=== PATIENT | female | born 1955 | race Caucasian/White ===

== ENCOUNTER → 2017-05-27 | Outpatient (CLI) | payer MEDICAID | LOC: FIMAGING 14:00 | PROVIDERS: ATTEND Family Medicine | DX: Z12.31 Encounter for screening mammogram for malignant neoplasm of breast (principal) | CPT/HCPCS: G0202 ==

== ENCOUNTER 2017-06-08 13:07 | Day surgery (SDC) | payer MEDICAID ==
[2017-06-08] MEDS ORDERED: LIDOCAINE 1% 2 ML INJ ONE (13:23)
[2017-06-08] MEDS ORDERED: LIDOCAINE 1% 2 ML INJ ID PRN (13:43)
[2017-06-08] MEDS ORDERED: LR 1,000 ML IV ONE (13:43)
--- NOTE | 2017-06-08 14:02 | PDANEPAE ---
ANE History of Present Illness colonoscope ANE Past Medical History - Cardiovascular History Hx Hypertension: No Hx Arrhythmias: No Hx Chest Pain: No Hx Coronary Artery / Peripheral Vascular Disease: No Hx CHF / Valvular Disease: No Hx Palpitations: No - Pulmonary History Hx COPD: No Hx Asthma/Reactive Airway Disease: No Hx Recent Upper Respiratory Infection: No Hx Oxygen in Use at Home: No Hx Sleep Apnea: No Sleep Apnea Screening Result - Last Documented: Positive - Endocrine History Hx Diabetes: No Hypothyroid: No Hyperthyroid: No ANE Review of Systems - Exercise capacity METS (RN): 4 METS ANE Patient History - Allergies Allergies/Adverse Reactions: codeine Allergy (Verified 07/21/16 10:43) latex Allergy (Verified 07/21/16 10:43) Sulfa (Sulfonamide Antibiotics) Allergy (Verified 07/21/16 10:43) sulfite Allergy (Verified 07/21/16 10:43) "all Pharmaceuticals" Allergy (Uncoded 07/21/16 10:43) - Home Medications Home Medications: NK [No Known Home Meds] 07/21/16 [Last Taken Unknown] - NPO status NPO Since - Liquids (Date): 06/08/17 NPO Since - Liquids (Time): 03:00 NPO Since - Solids (Date): 06/07/17 NPO Since - Solids (Time): 10:00 - Anes Hx Anes Hx: slow to awaken from anesthesia - Smoking Hx Smoking Status: Never smoked Marijuana use: No - Alcohol Use Alcohol Use: None ANE Labs/Vital Signs - Vital Signs Blood Pressure: 164/95 Heart Rate: 60 Respiratory Rate: 18 O2 Sat (%): 95 Height: 167.64 cm Weight: 121.212 kg ANE Physical Exam - Airway Neck exam: FROM Mallampati Score: Class 1 - Pulmonary Pulmonary: no respiratory distress - Cardiovascular Cardiovascular: regular rate and rhythym - ASA Status ASA Status: III ANE Anesthesia Plan Anesthesia Plan: GA with mask
[2017-06-08] MEDS ORDERED: PROPOFOL/EMULSION 500 MG/50 ML BOTTLE IV ONE (14:06)
--- NOTE | 2017-06-08 14:32 | PDGENHP ---
History & Physical Chief Complaint: Personal History of colo polyps History of Present Illness: Surveillance colonoscopy Pertinent Past, Social, Family History: Adenomatous colon polyps Relevant Physical Exam: NAD. CTA B/L. RRR without m/r/g. Abd: obese. Soft. NT /ND. NABS Cardiorespiratory Assessment: ASA II. Colonoscopy
[2017-06-08] MEDS ORDERED: LIDOCAINE 2% 5 ML SDV ONE (14:52)
[2017-06-08] MEDS ORDERED: ONDANSETRON 4 MG/2 ML VIAL IVP PRN (15:04)
[2017-06-08] MEDS ORDERED: NALOXONE HCL 0.4 MG/ML INJ IVP PRN (15:04)
--- NOTE | 2017-06-08 15:05 | POSTANESTH ---
Post Anesthetic Evaluation Cardiovascular Status: Normal, Stable Respiratory Status: Normal, Stable Level of Consciousness/Mental Status: Can Participate in Eval Pain Control: Adequate, Prn Tx Ordered Nausea/Vomiting Control: Adequate, Prn Tx Ordered Complications Possibly Related to Anesthesia: None Noted
[2017-06-08 15:20] VITALS: TEMP 97.5
--- NOTE | 2017-06-08 15:43 | GPN ---
[f rep st] PROCEDURE NOTE DATE OF PROCEDURE: 06/08/2017 PROCEDURE: Colonoscopy with biopsy. INDICATION: Surveillance of a personal history of adenomatous colon polyps. CONSENT: Procedure consent was obtained from the patient after the risks and benefits of colonoscop y and anesthesia were discussed in detail. All questions were answered and informed consent was obt ained. ANESTHESIOLOGIST: Dr. Chaidez. ENDOSCOPY STAFF: Krissy. COMPLICATIONS: None. ESTIMATED BLOOD LOSS: None. PROCEDURE MONITORING: Continuous per Anesthesiology protocol. ASA 3. DESCRIPTION OF PROCEDURE: The patient was placed into the left lateral decubitus position. Propofo l was administered. When she was appropriately sedated, a digital rectal exam was performed. The O lympus endoscope was ultimately placed into the anal canal and advanced into the cecum, which is vis ualized and identified by the appendiceal orifice and confluence of taenia coli, and the ileocecal v alve. All mucosal surfaces were examined in their entirety. A retroflexed view of the rectum was o btained. Quality of prep was excellent. FINDINGS: 1. A 3 mm cecal polyp, removed with cold biopsy. 2. Two ascending colon polyps between 3 and 4 mm in size, removed completely with cold biopsy. 3. One sigmoid colon polyp that was 4 mm in size, removed with cold biopsy. 4. Clark diverticulosis. 5. Normal digital rectal exam. IMPRESSION: 1. A 3 mm cecal polyp, removed by cold biopsy technique. 2. Two ascending colon polyps between 3 and 4 mm, removed completely with cold biopsy technique. 3. Clark diverticulosis. 4. A 4 mm sigmoid colon polyp removed with cold biopsy completely and retrieved. RECOMMENDATIONS: 1. Await pathology results. 2. Surveillance colonoscopy in 5 years. 3. Diet as tolerated. 4. The patient will be contacted with her pathology results as soon as they are available. /[id number]/MODL
[2017-06-08 15:56] VITALS: BP 139/89; PULSE 53; RESP 15; O2SAT 96
== END 2017-06-08 15:55 | disposition home or self-care (01) ==
LOC: FSGY 13:07
PROVIDERS: ATTEND Internal Medicine Gastroenterology
DX: Z12.11 Encounter for screening for malignant neoplasm of colon (principal); D12.0 Benign neoplasm of cecum; D12.2 Benign neoplasm of ascending colon; K63.5 Polyp of colon; K57.32 Diverticulitis of large intestine without perforation or abscess without bleeding; Z86.010 Personal history of colon polyps
CPT/HCPCS: J2704

== ENCOUNTER 2017-06-22 01:13 | Emergency (ER) | payer MEDICAID ==
--- NOTE | 2017-06-22 01:24 | EDPHY ---
H & P Time Seen by Provider: 06/22/17 01:23 HPI/ROS: CC: left eye redness and discomfort HPI: This 61-year-old female presents to emergency department tonight with left eye redness and discomfort that started at about 8:00 p.m. last evening. The discomfort feels like it is "bruised ". The discomfort increases with movement. She has not had changes in her vision. She denies recent illness. The light does not significantly bother her eye. 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 He denies a history of shingles or herpes virus and she does not wear contact lenses. She had a retinal detachment of the opposite eye in the past. REVIEW OF SYSTEMS: Constitutional: No fever, no chills. Eyes: No discharge. ENT: No sore throat. Respiratory: No cough, no shortness of breath. Cardiac: No chest pain, no palpitations. Gastrointestinal: No abdominal pain, no vomiting. Genitourinary: No hematuria. Musculoskeletal: No back pain. Skin: No rashes. Neurological: No headache. Past Medical/Surgical History: PMH: "atrial chaotica", retinal detachment, colon polyps (benign), dry eyes PSH: Hysterectomy without oophorectomy for fibroids, tonsillectomy FH: adopted Allergies reviewed Meds: Pataday eye drops, OTC Sooth eye lubricating drops Smoking Status: Never smoked Physical Exam: GEN: alert and oriented x 3, in mild distress Visual Acuity: noted from Nurse's notes. Pupils: equal round and reactive to light EOMI Lids: no edema or swelling Skin: no proptosis, no periorbital erythema or swelling, no vesicles Conjunctivae: Left eye erythematous/injected, no discharge Slit Lamp and Bullard lamp exam: Cornea: exam with fluorescein shows no evidence of corneal abrasion or foreign body. Lids were everted for exam Anterior chamber: normal, no hyphema or hypopyon; no cell or flare; IOP normal at 16mmHg by tonopen Cardiac: RRR, no M/G/R Pulmonary: CTAB Constitutional: Initial Vital Signs Temperature (C) 98.1 F 06/22/17 01:24 Heart Rate 58 L 06/22/17 01:24 Respiratory Rate 16 06/22/17 01:24 Blood Pressure 155/100 H 06/22/17 01:24 O2 Sat (%) 96 06/22/17 01:24 O2 Delivery Mode Room Air Allergies/Adverse Reactions: codeine Allergy (Verified 07/21/16 10:43) latex Allergy (Verified 07/21/16 10:43) Penicillins Allergy (Verified 06/22/17 01:21) Sulfa (Sulfonamide Antibiotics) Allergy (Verified 07/21/16 10:43) sulfite Allergy (Verified 07/21/16 10:43) "all Pharmaceuticals" Allergy (Uncoded 07/21/16 10:43) Home Medications: Medication Instructions Recorded Pat06/22/17 Medical Decision Making ED Course/Re-evaluation: The patient was seen and examined, vital signs were reviewed. The patient's initial blood pressure was elevated and he was advised to follow up this with her primary care provider. Exam of her left eye was done with the ophthalmoscope, Wood's lamp, slit lamp and Hipolito-Pen. There is no evidence of corneal abrasion, foreign body, acute angle closure glaucoma, iritis or retinal detachment. She was given ciprofloxacin ophthalmic solution and instructed to use 1-2 drops every 2 hours while awake for the next 1-2 days and then decrease the amount to 1 drop every 3-4 hours for a total of 7 days. She should follow up with her ethnoarchaeologist if no improvement or worsening symptoms in the next 1-2 days. Departure - Departure Disposition: Home, Routine, Self-Care Clinical Impression: Acute conjunctivitis of left eye Condition: Good Instructions: Ciprofloxacin (Into the eye), Conjunctivitis (ED) Additional Instructions: Use the eye drops as directed. Follow up with ophthalmology if no improvement or worsening symptoms. Your blood pressure was elevated today. You should have this rechecked with your primary care provider in the next couple of weeks. Referrals: Patient,NotPresent [Primary Care Provider] - As per Instructions Orlando Ortega MD [Medical Doctor] - 2-3 days, if not improved Bertin Dubois MD [Medical Doctor] - As per Instructions (Have your doctor recheck your blood pressure in the next couple of weeks.)
[2017-06-22 01:27] VITALS: RESP 16; TEMP 98.1; O2SAT 96
[2017-06-22] MEDS ORDERED: CIPROFLOXACIN 0.3% DROPS PREPACK OPHT.BTL TAKEHOME ONE (01:52)
[2017-06-22 02:28] VITALS: BP 118/91; PULSE 62
[2017-06-22] MEDS ORDERED: CIPROFLOXACIN 3.5 GM OPHT.OINT LEFTEYE SCH (21:00)
== END 2017-06-22 02:28 | disposition home or self-care (01) ==
LOC: CED 01:13
DX: H10.32 Unspecified acute conjunctivitis, left eye (principal); Z91.040 Latex allergy status